=== PATIENT | male | born 1935 | race Caucasian/White ===

== ENCOUNTER 2022-04-01 03:16 | Inpatient (IN) | payer MEDICARE, BC ==
[~2022-04-01] VITALS: Ht 182.9 cm; Wt 86.6 kg
[2022-04-01] MEDS ORDERED: AMIODARONE HCL 150 MG in D5W 5% 100 ML IV ONE (03:30)
[2022-04-01] MEDS ORDERED: SODIUM CHLORIDE 0.9% 1,000 ML IVB ONE (03:30)
[2022-04-01] MEDS ORDERED: SODIUM CHLORIDE 0.9% 500 ML IV ONE (03:30)
[2022-04-01] MEDS ORDERED: AMIODARONE HCL (50 MG/ ML) 3 ML VIAL IV ONE (03:32)
[2022-04-01] MEDS ORDERED: AMIODARONE 450mg/250ml AE 250 ML IV SCH ×3 (03:45→09:45)
[2022-04-01 04:00] LABS: Basophils # (auto) 0 10 ^3/uL (0-0.2); Basophils % (auto) 0.5 % (0.0-2.0); Eosinophils # (auto) 0.2 10 ^3/uL (0-0.8); Eosinophils % (auto) 2.4 % (0.0-7.0); Hematocrit 38.1 % (41.0-53.0); Hemoglobin 12.3 g/dL (13.5-17.5); Lymphocytes # (auto) 2.2 10 ^3/uL (0.4-5.4); Lymphocytes % (auto) 34.5 % (10.0-50.0); Mean Corpuscular Hemoglobin 26.3 pg (28.0-32.0); Mean Corpuscular Hgb Conc. 32.2 g/dL (32.0-36.0); Mean Corpuscular Volume 81.6 fL (80.0-100.0); Monocytes # (auto) 0.6 10 ^3/uL (0-1.3); Monocytes % (auto) 9.4 % (0.0-12.0); Neutrophils # (auto) 3.4 10 ^3/uL (1.6-8.6); Neutrophils % (auto) 53.2 % (37.0-80.0); Nucleated Red Blood Cells % 0.1 %; Red Blood Cells 4.67 10^6/uL (4.5-5.90); White Blood Cell 6.4 10^3/uL (4.4-10.8)
[2022-04-01 04:01] LABS: Red Cell Distribution Width 20.7 % (11.8-14.3)
[2022-04-01 04:11] LABS: Albumin 3.1 g/dL (3.4-5.0); BUN/Creatinine Ratio 20.4; Calcium 8.7 mg/dL (8.5-10.1); Potassium 4.4 mmol/L (3.5-5.1)
[2022-04-01 04:21] LABS: Bilirubin, Total 0.4 mg/dL (0.2-1.0); Total Protein 6.2 g/dL (6.4-8.2)
[2022-04-01 04:42] LABS: INR 1.42 (0.9-1.15); Partial Thromboplastin Time 38.2 sec (24.6-33.4)
[2022-04-01] MEDS: AMIODARONE 450mg/250ml AE 250 ML IV SCH (10:02)
[2022-04-01] MEDS ORDERED: PANTOPRAZOLE 40 MG/10 ML VIAL INJ IV ONE (13:15)
[2022-04-01] MEDS ORDERED: NITROGLYCERIN 0.4 MG SL TAB SL PRN (13:15)
[2022-04-01] MEDS ORDERED: SODIUM CHLORIDE 0.9% 1,000 ML IV SCH (13:15)
[2022-04-01] MEDS ORDERED: MORPHINE SULFATE INJ 2 MG/ml SYRG IV PRN (13:15)
[2022-04-01] MEDS ORDERED: ONDANSETRON HCL 4 MG/2 ML VIAL IV PRN (13:15)
[2022-04-01 13:33] LABS: Magnesium 2.1 mg/dL (1.6-2.6)
[2022-04-01] MEDS ORDERED: RIV20T PO (13:49)
[2022-04-01] MEDS ORDERED: CARV12.544 PO (13:49)
[2022-04-01] MEDS ORDERED: SIMV-8 PO (13:49)
[2022-04-01] MEDS ORDERED: MET50T PO (13:49)
[2022-04-01] MEDS ORDERED: DEXTROSE (50%) 50ML SYRG IV PRN (14:00)
[2022-04-01] MEDS: SODIUM CHLORIDE 0.9% 1,000 ML IV SCH ×2 (15:00→17:00)
[2022-04-01] MEDS: InsuLIN REG 1unit/0.01ml Soln (100units/ml) SC SCH ×2 (17:00→22:00)
[2022-04-01] MEDS: ACCU-CHEK COMFORT CURVE STRIP VI SCH ×2 (17:15→22:09)
[2022-04-02 00:45] VITALS: BP 120/45
[2022-04-02] MEDS ORDERED: ASPI-543 PO (01:07)
[2022-04-02] MEDS: AMIODARONE 450mg/250ml AE 250 ML IV SCH (02:00)
[2022-04-02 05:00] VITALS: BP 123/55
[2022-04-02] MEDS: ACCU-CHEK COMFORT CURVE STRIP VI SCH (06:43)
[2022-04-02] MEDS: InsuLIN REG 1unit/0.01ml Soln (100units/ml) SC SCH (06:43)
[2022-04-02 06:49] LABS: Basophils # (auto) 0 10 ^3/uL (0-0.2); Eosinophils # (auto) 0.1 10 ^3/uL (0-0.8); Lymphocytes # (auto) 1.3 10 ^3/uL (0.4-5.4); Mean Corpuscular Hemoglobin 26.4 pg (28.0-32.0); Monocytes # (auto) 0.5 10 ^3/uL (0-1.3); Neutrophils # (auto) 3.9 10 ^3/uL (1.6-8.6); Nucleated Red Blood Cells % 0.1 %; White Blood Cell 5.8 10^3/uL (4.4-10.8)
[2022-04-02 06:52] LABS: Basophils % (auto) 0.4 % (0.0-2.0); Eosinophils % (auto) 2.4 % (0.0-7.0); Hematocrit 32.9 % (41.0-53.0); Hemoglobin 10.6 g/dL (13.5-17.5); Lymphocytes % (auto) 21.5 % (10.0-50.0); Mean Corpuscular Hgb Conc. 32.3 g/dL (32.0-36.0); Mean Corpuscular Volume 81.6 fL (80.0-100.0); Monocytes % (auto) 8.3 % (0.0-12.0); Neutrophils % (auto) 67.4 % (37.0-80.0); Red Blood Cells 4.03 10^6/uL (4.5-5.90)
[2022-04-02 06:54] LABS: Potassium 3.9 mmol/L (3.5-5.1)
[2022-04-02 06:58] LABS: Albumin 2.5 g/dL (3.4-5.0); Calcium 8.5 mg/dL (8.5-10.1)
[2022-04-02 07:01] LABS: Bilirubin, Total 0.4 mg/dL (0.2-1.0); Total Protein 5.7 g/dL (6.4-8.2)
[2022-04-02 07:47] LABS: Red Cell Distribution Width 20.2 % (11.8-14.3)
[2022-04-02 09:09] VITALS: BP 132/55
[2022-04-02] MEDS ORDERED: ENOXAPARIN SOD 40 MG/0.4 ML SYRINGE SC SCH (10:00)
[2022-04-02] MEDS ORDERED: PANTOPRAZOLE 40 MG/10 ML VIAL INJ IV SCH (10:00)
[2022-04-02] MEDS ORDERED: METOPROLOL TARTRATE 50 MG TAB PO SCH (11:45)
[2022-04-02] MEDS ORDERED: ASPirin-EC 81 mg tab PO ONE (11:45)
[2022-04-02 13:00] VITALS: BP 117/58
[2022-04-02] MEDS ORDERED: AMIO200T4 PO ×2 (14:14→15:39)
[2022-04-02 16:52] VITALS: BP 117/67
[2022-04-02] MEDS ORDERED: RIVAROXABAN 20 MG TAB PO SCH (18:00)
[2022-04-02] MEDS ORDERED: AMIODARONE HCL 200 MG TAB PO SCH (22:00)
[2022-04-02] MEDS ORDERED: ATORVASTATIN 20 MG TAB PO SCH (22:00)
[2022-04-02] MEDS ORDERED: CARVEDILOL 3.125 MG TAB PO SCH (22:00)
[2022-04-03] MEDS ORDERED: ASPirin-EC 81 mg tab PO SCH (10:00)
== END 2022-04-02 17:50 | disposition home health service (06) | DRG 310 ==
LOC: ER 03:20 → TELE 13:01 → TELE-WESTW 23:34
PROVIDERS: ADMIT Nurse Practitioner Family; ATTEND Internal Medicine
PROC: 4B02XTZ Measurement of Cardiac Defibrillator, External Approach (ICD-10-PCS; principal; 2022-04-02)
DX: I47.1 Supraventricular tachycardia (principal); I47.20 Ventricular tachycardia, unspecified; E78.5 Hyperlipidemia, unspecified; D64.9 Anemia, unspecified; I48.91 Unspecified atrial fibrillation; I11.0 Hypertensive heart disease with heart failure; I25.10 Atherosclerotic heart disease of native coronary artery without angina pectoris; I25.5 Ischemic cardiomyopathy; I50.9 Heart failure, unspecified; E11.42 Type 2 diabetes mellitus with diabetic polyneuropathy; Z20.822 Contact with and (suspected) exposure to COVID-19; Z95.1 Presence of aortocoronary bypass graft; Z95.810 Presence of automatic (implantable) cardiac defibrillator; Z86.718 Personal history of other venous thrombosis and embolism
CPT/HCPCS: 36415; 71045; 80053; 80061; 82962; 83036; 83735; 83880; 84443; 84484; 85025; 85610; 85730; 87081; 87426; 93005; 93306; 96365; 96366; 96375; 97163; 99291; 99292; C9113; G0378; J7060